=== PATIENT | female | born 1930 | race Caucasian/White ===

== ENCOUNTER 2016-04-18 15:53 | Observation (INO) | payer OTHER, MEDICARE ==
[2016-04-18 16:27] VITALS: BMI 27.1
[2016-04-18 16:48] LABS: BASOPHIL 0.8 % (0-2.0); EOSINOPHIL 6.1 % (0-4.5); MCH 28.9 pg (25.7-33.7); MCHC 32.5 g/dl (32.0-36.0); MEAN PLT VOLUME 8.3 fl (7.5-11.1); PLATELET COUNT 191 K/MM3 (134-434); RDW 14.9 % (11.6-15.6); WHITE BLOOD COUNT 5.1 K/mm3 (4.0-10.0)
[2016-04-18 17:00] LABS: INR 1.12 (0.82-1.09); PROTHROMBIN TIME (PATIENT) 12.4 SEC (9.98-11.88)
[2016-04-18 17:14] LABS: ALBUMIN 3.3 g/dl (3.4-5.0); ANION GAP 7 (8-16); BILIRUBIN,TOTAL 0.6 mg/dL (0.2-1.0); CO2 29 mmol/L (21-32); GLUCOSE,RANDOM 105 mg/dL (74-106); SGOT/AST 18 U/L (15-37); SGPT/ALT 29 U/L (12-78); TOT PROT 5.6 g/dl (6.4-8.2)
[2016-04-18 17:16] LABS: ALK PHOS 46 U/L (45-117); TROPONIN I < 0.02 ng/ml (0.00-0.05)
--- NOTE | 2016-04-18 18:21 | PDOC ---
History of Present Illness - General History Source: Patient, Family Exam Limitations: No Limitations <Francheska Bhakta - Last Filed: 04/18/16 20:33> <Vivian Hutson - Last Filed: 04/19/16 01:40> - General Chief Complaint: Syncope/Near Syncope Stated Complaint: SYNCOPE Time Seen by Provider: 04/18/16 16:24 - History of Present Illness Initial Comments: 04/18/16 18:47 The patient is an 85 year old female, with a significant past medical history of hypotension, hyperlipidemia, breast CA (1969, 1998) and dementia, who presents to the emergency department via EMS s/p two syncopal episodes just prior to presentation while the patient was at [facility] with her family. Her family is with her in the ED. They state that the patient was conversational up until she syncopized. They state that the patient was sitting for both syncopal episodes so she did not fall, they deny any head trauma. Family states that each syncopal episode lasted approximately 20-30 seconds in length. The patient does report that she was experiencing muscle cramping in her legs all day up until she syncopized. The patient denies fever, chills, headache, SOB, chest pain, nausea or vomiting. Allergies: None reported. Past Surgical History: Bilateral Mastectomy (1998), Right Hip Social History: Non smoker. Denies alcohol or drug use. PCP: In [place], [place] (Francheska Bhakta) Past History <Francheska Bhakta - Last Filed: 04/18/16 20:33> - Past Medical History Cancer: Yes (BREAST: 1969, 1998) Dementia: Yes Hypercholesterolemia: Yes Other medical history: HYPOTENSION. - Psycho/Social/Smoking Cessation Hx Anxiety: No Suicidal Ideation: No Smoking History: Never smoked Hx Alcohol Use: No Drug/Substance Use Hx: No Substance Use Type: None <Vivian Hutson - Last Filed: 04/19/16 01:40> - Past Medical History Allergies/Adverse Reactions: Allergies Allergy/AdvReac Type Severity Reaction Status Date / Time No Known Allergies Allergy Verified 04/18/16 16:24 Home Medications: Ambulatory Orders Cyclosporine [Restasis] 04/18/16 Donepezil HCl [Aricept] 10 mg PO DAILY 01/08/17 Fluoxetine HCl 10 mg 04/18/16 Raloxifene HCl [Evista (Nf) -] 60 mg PO DAILY 04/18/16 Simvastatin 20 mg PO DAILY 04/18/16 Review of Systems - Review of Systems Able to Perform ROS?: Yes <Francheska Bhakta - Last Filed: 04/18/16 20:33> <Vivian Hutson - Last Filed: 04/19/16 01:40> - Review of Systems Comments:: 04/18/16 18:47 CONSTITUTIONAL: Absent: fever, no chills, no fatigue EYES: Absent: visual changes ENT: Absent: ear pain, no sore throat CARDIOVASCULAR: Present: +Syncope Absent: chest pain, no palpitations RESPIRATORY: Absent: cough, no SOB GI: Absent: abdominal pain, no nausea, no vomiting, no constipation, no diarrhea GENITOURINARY: Absent: dysuria, no frequency, no hematuria MUSCULOSKELETAL: Present: +Muscle cramping (legs) Absent: back pain, no arthralgia SKIN: Absent: rash NEURO: Absent: headache (Francheska Bhakta) *Physical Exam <Francheska Bhakta - Last Filed: 04/18/16 20:33> <Vivian Hutson - Last Filed: 04/19/16 01:40> - Vital Signs Last Vital Signs Temp Pulse Resp BP Pulse Ox 98.3 F 64 16 125/65 98 04/18/16 22:00 04/18/16 22:00 04/18/16 22:00 04/18/16 22:00 04/18/16 22:00 - Physical Exam Comments: 04/18/16 18:48 GENERAL: Well-appearing, well-nourished. No apparent distress. HEENT: Normocephalic, atraumatic. PERRL, EOM intact. CARDIOVASCULAR: Regular rate and rhythm. Normal S1, S2. PULMONARY: Lungs clear to auscultation bilaterally. No wheezing, rales or rhonchi. ABDOMEN: Soft, non-distended, non-tender. No guarding, no rebound. EXTREMITIES: Normal ROM in all four extremities. No gross deformities. No pitting edema. SKIN: Warm, dry. No rash. NEUROLOGICAL: No focal neurological deficits. Moving all extremities purposefully. (Francheska Bhakta) Heart Score/ECG Review #1 ECG reviewed & interpreted by me at: 16:31 (Vent. Rate: 65 bpm. Normal sinus rhythm. Possible left atrial enlargement. Nonspecific T wave abnormality.) <Francheska Bhakta - Last Filed: 04/18/16 20:33> - History History: Slightly suspicious - Electrocardiogram EKG: Non specific repolarization disturbance - Age Age: >/= 65 - Risk Factors Risk Factors Heart Score: Yes Hx Hypercholesterolemia Based on the list above the patient has:: 1-2 risk factors - Troponin Troponin: </= normal limit - Score Heart Score - Total: 4 #1 General ECG Interpretation: Sinus Rhythm - ECG Intrepretation Rhythm: Regular Rhythm - [place]: Normal - P and [place] Atrial Enlargement: Left Delta Wave(s) Present: No WPW: No - QRS Poor R Wave Progression: No - ST and T Early Repolarization: No Non Specific ST-T Wave changes: Yes Prolonged Q-T Interval: No - ECG Impressions Non-specific ST Elevation: No Ischemic Changes: No Bradycardia: No Torsades valeriano Pointes: No WPW: No <Vivian Hutson - Last Filed: 04/19/16 01:40> ED Treatment Course - LABORATORY CBC & Chemistry Diagram: 04/18/16 16:40 04/18/16 16:40 <Francheska Bhakta - Last Filed: 04/18/16 20:33> - LABORATORY CBC & Chemistry Diagram: 04/18/16 16:40 04/18/16 16:40 <Vivian Hutson - Last Filed: 04/19/16 01:40> - ADDITIONAL ORDERS Additional order review: Laboratory Results 04/18/16 04/18/16 16:40 16:40 INR 1.12 Sodium 144 Potassium 4.0 Chloride 108 H Carbon Dioxide 29 Anion Gap 7 L BUN 18 Creatinine 1.0 Creat Clearance w eGFR 52.57 Random Glucose 105 Calcium 8.0 L Total Bilirubin 0.6 AST 18 ALT 29 Alkaline Phosphatase 46 Creatine Kinase 141 Troponin I < 0.02 Total Protein 5.6 L Albumin 3.3 L 04/18/16 16:40 RBC 4.14 MCV 89.0 MCHC 32.5 RDW 14.9 MPV 8.3 Neutrophils % 70.0 Lymphocytes % 14.5 Monocytes % 8.6 Eosinophils % 6.1 H Basophils % 0.8 - RADIOLOGY Radiology Studies Ordered: Category Date Time Status HEAD CT WITHOUT CONTRAST [CT] Stat CT Scan 04/18/16 17:23 Taken CHEST X-RAY PORTABLE* [RAD] Stat Radiology 04/18/16 16:25 Taken Medical Decision Making <Francheska Bhakta - Last Filed: 04/18/16 20:33> <Vivian Hutson - Last Filed: 04/19/16 01:40> - Medical Decision Making 04/18/16 18:54 EXAM: CHEST X-RAY PORTABLE Reviewed By: Dr. Arley Cardoza IMPRESSION: Mild left lung base atelectasis suggested. No other acute cardiopulmonary disease demonstrated. EXAM: HEAD CT WITHOUT CONTRAST Reviewed By: Dr. Arley Cardoza IMPRESSION: No evidence of acute intracranial abnormality demonstrated. Mild age appropriate cerebral volume loss. There is no CT evidence of acute cortical territorial infarction, bleed, mass lesion, mass effect, hydrocephalus or abnormal extra axial collection. No acute sinusitis or mastoiditis is identified. No acute skull fracture or calvarial lesion is noted. Called Dr. Pathak of Cardiology at at 20:07. Referred to answering service. Dr. Pathak returned call at 20:32. Case discussed. (Francheska Bhakta) 04/19/16 01:33 85-year-old female brought in by ambulance from a restaurant where she had a witnessed syncopal episode -On arrival, she was alert and oriented. She did not have any complaints. She had no prodromal symptoms before fainting. She did not have chest pain or shortness of breath or nausea feel flushed. -No focal neural deficits upon arrival EKG did not show any signs of ischemia CAT scan of the head was negative for any acute intracranial pathology First set of cardiac enzymes were negative. The patient lives in [place] and was visiting the area Social history she is a , does not use tobacco Discussed with the hospitalist, Dr. Headley and the patient was admitted to telemetry. I also spoke to Dr. Cabrera. The lump maker, and he will consult on this patient. He agreed with cardiac telemetry admission (Vivian Hutson) *DC/Admit/Observation/Transfer <Francheska Bhakta - Last Filed: 04/18/16 20:33> - Discharge Dispostion Admit: Yes <Vivian Hutson - Last Filed: 04/19/16 01:40> Diagnosis at time of Disposition: Syncope Qualifiers: Syncope type: unspecified Qualified Code(s): R55 - Syncope and collapse - Discharge Dispostion Decision to Admit order Date/Time: Decision to Admit Order Category Date Time Status Decision to Admit to Hospital Routine Phy Order 04/18/16 18:21 Ordered - Referrals - Attestations Scribe Attestion: 04/18/16 18:37 Documentation prepared by Francheska Bhakta, acting as medical administrative specialist for Vivian Hutson MD. (Francheska Bhakta)
--- NOTE | 2016-04-18 19:11 | HP ---
CHIEF COMPLAINT: Lightheadedness, Syncope PCP: Not on Staff HISTORY OF PRESENT ILLNESS: This is a 85 year old woman with a past medical history of Hypotension, Hyperlipidemia, Dementia, Breast Ca (1969,1998). Who presents to the emergency department with lightheadedness and syncope x this afternoon. Per patient's son , patient was eating lunch then became pale, and unresponsive for approx 30 secs , with lip cyanosis. Patient has no memory of the event. Patient denies headache , dizziness, blurred vision. Patient denies fever, chills, SOB, CP, palpitations , AP, N/V/D, constipation, dysuria. Patient denies recent travel or sick contacts. ER course was notable for: (1) CT- No evidence of acute intracranial abnormality demonstrated. Mild age appropriate cerebral volume loss. There is no CT evidence of acute cortical territorial infarction, bleed, mass lesion, mass effect, hydrocephalus or abnormal extra axial collection. No acute sinusitis or mastoiditis is identified. No acute skull fracture or calvarial lesion is noted. (2) EKG- Normal sinus rhythm. Possible left atrial enlargement. Nonspecific T wave abnormality (3) Recent Travel: None PAST MEDICAL HISTORY: See HPI PAST SURGICAL HISTORY: Bilateral Mastectomy Right Hip Replacement Social History: Smoking: None Alcohol: None Drugs: None Lives alone, family support, her son. Retired- Educator Family History: Non-contributory Allergies No Known Allergies Allergy (Verified 04/18/16 16:24) HOME MEDICATIONS: Medication Instructions Recorded Donepezil HCl [Aricept] 10 mg PO DAILY 04/18/16 Simvastatin 20 mg PO Daily 04/18/16 Restasis 0.05% 1 gtt both eyes BID 04/18/16 Vitamin D 800 IU PO DAILY 04/18/16 Evista 60 mg PO DAILY 04/18/16 REVIEW OF SYSTEMS CONSTITUTIONAL: Absent: fever, chills, diaphoresis, generalized weakness, malaise, loss of appetite, weight change HEENT: Absent: rhinorrhea, nasal congestion, throat pain, throat swelling, difficulty swallowing, mouth swelling, ear pain, eye pain, visual changes CARDIOVASCULAR: syncope, lightheadedness Absent: chest pain, palpitations, irregular heart rate, peripheral edema RESPIRATORY: Absent: cough, shortness of breath, dyspnea with exertion, orthopnea, wheezing, stridor, hemoptysis GASTROINTESTINAL: Absent: abdominal pain, abdominal distension, nausea, vomiting, diarrhea, constipation, melena, hematochezia GENITOURINARY: Absent: dysuria, frequency, urgency, hesitancy, hematuria, flank pain, genital pain MUSCULOSKELETAL: Absent: myalgia, arthralgia, joint swelling, back pain, neck pain SKIN: Absent: rash, itching, pallor HEMATOLOGIC/IMMUNOLOGIC: Absent: easy bleeding, easy bruising, lymphadenopathy, frequent infections ENDOCRINE: Absent: unexplained weight gain, unexplained weight loss, heat intolerance, cold intolerance NEUROLOGIC: Absent: headache, focal weakness or paresthesias, dizziness, unsteady gait, seizure, mental status changes, bladder or bowel incontinence PSYCHIATRIC: Absent: anxiety, depression, suicidal or homicidal ideation, hallucinations. PHYSICAL EXAMINATION GENERAL: Awake, alert, and oriented x2, in no acute distress. HEAD: Normal with no signs of trauma. EYES: Pupils equal, round and reactive to light, extraocular movements intact, sclera anicteric, conjunctiva clear. No lid lag. EARS, NOSE, THROAT: Ears normal, nares patent, oropharynx clear without exudates. Moist mucous membranes. NECK: Normal range of motion, supple without lymphadenopathy, JVD, or masses. LUNGS: Breath sounds equal, clear to auscultation bilaterally. No wheezes, and no crackles. No accessory muscle use. HEART: Regular rate and rhythm, normal S1 and S2 without murmur, rub or gallop. ABDOMEN: Soft, nontender, not distended, normoactive bowel sounds, no guarding, no rebound, no masses. No hepatomegaly or splenomegaly. MUSCULOSKELETAL: Normal range of motion at all joints. No bony deformities or tenderness. No CVA tenderness. UPPER EXTREMITIES: 2+ pulses, warm, well-perfused. No cyanosis. No clubbing. Cap refill <2 seconds. No peripheral edema. LOWER EXTREMITIES: 2+ pulses, warm, well-perfused. No calf tenderness. No peripheral edema. NEUROLOGICAL: Cranial nerves II-XII intact. Normal speech. Gait not observed. PSYCHIATRIC: Cooperative. Good eye contact. Appropriate mood and affect. SKIN: Warm, dry, normal turgor, no rashes or lesions noted. Laboratory Tests 04/18/16 04/18/16 04/18/16 16:40 16:40 16:40 WBC 5.1 RBC 4.14 Hgb 12.0 Hct 36.8 MCV 89.0 MCHC 32.5 RDW 14.9 Plt Count 191 MPV 8.3 Neutrophils % 70.0 Lymphocytes % 14.5 Monocytes % 8.6 Eosinophils % 6.1 H Basophils % 0.8 INR 1.12 Sodium 144 Potassium 4.0 Chloride 108 H Carbon Dioxide 29 Anion Gap 7 L BUN 18 Creatinine 1.0 Creat Clearance w eGFR 52.57 Random Glucose 105 Calcium 8.0 L Total Bilirubin 0.6 AST 18 ALT 29 Alkaline Phosphatase 46 Creatine Kinase 141 Troponin I < 0.02 Total Protein 5.6 L Albumin 3.3 L Diagnostics: EXAM: CHEST X-RAY PORTABLE Reviewed By: Dr. Arley Cardoza IMPRESSION: Mild left lung base atelectasis suggested. No other acute cardiopulmonary disease demonstrated. EXAM: HEAD CT WITHOUT CONTRAST Reviewed By: Dr. Arley Cardoza IMPRESSION: No evidence of acute intracranial abnormality demonstrated. Mild age appropriate cerebral volume loss. There is no CT evidence of acute cortical territorial infarction, bleed, mass lesion, mass effect, hydrocephalus or abnormal extra axial collection. No acute sinusitis or mastoiditis is identified. No acute skull fracture or calvarial lesion is noted. ASSESSMENT/PLAN: This is a 85 year old woman with a PMHx of: Hypotension, HLD, Dementia, Breast Ca. Who present to the ED with lightheadedness and syncope x this afternoon. Placed in observation for Syncope for further evaluation for their emergent condition. Plan: 1. Card: Syncope/Hypotension/HLD - Likely secondary to Hypotension vs Arrhythmia - Tele monitoring - HEART Score 4 - Appreciate Cardiology consult- call placed by ED - Orthostatics - Fall Precautions - CE neg x1 - Trend CE x2 - Echo in am check wall motion, valvular dz - Carotid Doppler in am r/o stenosis - CT Brain- mild age appropriate cerebral volume loss - Monitor vitals - Monitor CBC, BMP in am - Lipid Panel, HgbA1C in am - Patient's home med Simvastatin 20mg not on formulary will substitute Lipitor 10mg 2. Dementia - Continue Aricept - Fall Precautions 3. Breast Ca - hx Salas mastectomy 4. F/E/N - PO Fluids - Replete lytes prn - Low Chol, Low Fat Diet 5. DVT/PPI Prophylaxis - OOB - SCDs - Consider AC if LOS > 48 hrs - PPI 6. Code Status: Patient is a Full Code Problem List - Problem (1) Syncope Code(s): R55 - SYNCOPE AND COLLAPSE Qualifiers: Syncope type: unspecified Qualified Code(s): R55 - Syncope and collapse (2) Hypotension, chronic Code(s): I95.89 - OTHER HYPOTENSION (3) HLD (hyperlipidemia) Code(s): E78.5 - HYPERLIPIDEMIA, UNSPECIFIED (4) Breast CA Code(s): C50.919 - MALIGNANT NEOPLASM OF UNSP SITE OF UNSPECIFIED FEMALE BREAST (5) Dementia Code(s): F03.90 - UNSPECIFIED DEMENTIA WITHOUT BEHAVIORAL DISTURBANCE (6) DVT prophylaxis Code(s): DXS9723 - Visit type - Emergency Visit Emergency Visit: Yes ED Registration Date: 04/18/16 Care time: The patient presented to the Emergency Department on the above date and was hospitalized for further evaluation of their emergent condition. - New Patient This patient is new to me today: Yes Date on this admission: 04/18/16 - Critical Care Critical Care patient: No
[2016-04-18] MEDS ORDERED: DONEPEZIL HCL 5 MG TABLET (FP) ONE (22:34)
[2016-04-18 23:09] LABS: TROPONIN I < 0.02 ng/ml (0.00-0.05)
[2016-04-19] MEDS ORDERED: ACETAMINOPHEN 325 MG TABLET (FP) PO PRN (00:17)
[2016-04-19 06:47] LABS: URINE APPEARANCE SLCLOUDY; URINE BILIRUBIN NEGATIVE (NEGATIVE); URINE BLOOD NEGATIVE (NEGATIVE); URINE COLOR YELLOW; URINE GLUCOSE (UA) NEGATIVE (NEGATIVE); URINE KETONE TRACE (NEGATIVE); URINE LEUK ESTERASE NEGATIVE (NEGATIVE); URINE NITRITE NEGATIVE (NEGATIVE); URINE PROTEIN NEGATIVE (NEGATIVE); URINE UROBILINOGEN NEGATIVE E.U./dl (0.2-1.0)
[2016-04-19 07:34] LABS: BASOPHIL 0.6 % (0-2.0); EOSINOPHIL 6.7 % (0-4.5); MCH 29.7 pg (25.7-33.7); MCHC 33.2 g/dl (32.0-36.0); MEAN CELL VOLUME 89.4 fl (80-96); MEAN PLT VOLUME 8.5 fl (7.5-11.1); NEUTROPHILS 58.4 % (42.8-82.8); PLATELET COUNT 160 K/MM3 (134-434); RDW 14.9 % (11.6-15.6); WHITE BLOOD COUNT 5.8 K/mm3 (4.0-10.0)
[2016-04-19 07:53] LABS: CALCIUM 7.8 mg/dL (8.5-10.1); CREATININE 0.9 mg/dL (0.55-1.02); MAGNESIUM 2.2 mg/dL (1.8-2.4); PHOSPHOROUS 3.3 mg/dL (2.5-4.9)
[2016-04-19 08:02] LABS: TROPONIN I < 0.02 ng/ml (0.00-0.05)
[2016-04-19] MEDS ORDERED: CHOLECALCIFEROL (VITAMIN D3) 400 UNIT TABLET (FP) PO SCH (10:00)
[2016-04-19 12:29] VITALS: TEMP 97.8
--- NOTE | 2016-04-19 13:42 | CONSULT ---
Cardiology Consult (text) - Consultation Consultation Note: Cardiology 85 year old female with no significant PMH, denies any significant past medical history, admitted for syncope, while at lunch, few secs to mts; denies any cardiac symtoms. social NA allergy NA FH NA; CVA Surgery mastectomy PMH NA PE: vitals stable normal cardio-pulmonary exam abdomen soft no leg edema Impression: syncope needs to be further evaluated family wants to leave AMA, and does not want further cardiac evaluation. US carotids unremarkable No evidence of PA, CHF or arrythmias EKG NSR subtle ST depression inferior, T changes V 1-3, subtle ST depression V 5 Rec: Follow-up with PCP and director of customer acquisition.
--- NOTE | 2016-04-19 13:47 | DS ---
Physical Exam: SUBJECTIVE: Patient seen and examined. She was laying in the Ed stretcher in no acute distress. States she did not sleep last night and wants to leave for an appointment she has today. Encouraged her to stay and wait for the crystal grower who is on his way to see her. She agreed to wait but after crystal grower evaluated, she wants to leave AMA. OBJECTIVE: Vital Signs Period Temp Pulse Resp BP Sys/Medina Pulse Ox Last 24 Hr 97.8 F-98.3 F 56-72 16-20 124-170/64-98 98-99 PHYSICAL EXAM GENERAL: The patient is awake, alert, and fully oriented, in no acute distress. HEAD: Normal with no signs of trauma. EYES: , sclera anicteric, conjunctiva clear. ENT: Ears normal, nares patent, oropharynx clear without exudates, moist mucous membranes. NECK: Trachea midline, full range of motion, supple. LUNGS: Bilateral lung selby with clear lung sounds HEART: Regular rate and rhythm ABDOMEN: Soft, nontender, nondistended, normoactive bowel sounds, no guarding EXTREMITIES: 2+ pulses, warm, well-perfused, no edema. NEUROLOGICAL: Normal speech, gait not observed. PSYCH: Normal mood, normal affect. SKIN: Warm, dry, normal turgor, no rashes or lesions noted. LABS Laboratory Results - last 24 hr 04/18/16 04/19/16 04/19/16 22:35 06:25 06:25 WBC 5.8 RBC 3.74 Hgb 11.1 Hct 33.5 MCV 89.4 MCHC 33.2 RDW 14.9 Plt Count 160 MPV 8.5 Neutrophils % 58.4 Lymphocytes % 24.0 D Monocytes % 10.3 H Eosinophils % 6.7 H Basophils % 0.6 Sodium 141 Potassium 4.2 Chloride 110 H Carbon Dioxide 25 Anion Gap 6 L BUN 24 H D Creatinine 0.9 Random Glucose 94 Calcium 7.8 L Phosphorus 3.3 Magnesium 2.2 Creatine Kinase 113 Troponin I < 0.02 Urine Color Urine Appearance Urine pH Ur Specific Rex Urine Protein Urine Glucose (UA) Urine Ketones Urine Blood Urine Nitrite Urine Bilirubin Urine Urobilinogen Ur Leukocyte Esterase 04/19/16 04/19/16 06:25 06:37 WBC RBC Hgb Hct MCV MCHC RDW Plt Count MPV Neutrophils % Lymphocytes % Monocytes % Eosinophils % Basophils % Sodium Potassium Chloride Carbon Dioxide Anion Gap BUN Creatinine Random Glucose Calcium Phosphorus Magnesium Creatine Kinase 129 Troponin I < 0.02 Urine Color Yellow Urine Appearance Slcloudy Urine pH 6.0 Ur Specific Rex 1.028 Urine Protein Negative Urine Glucose (UA) Negative Urine Ketones Trace H Urine Blood Negative Urine Nitrite Negative Urine Bilirubin Negative Urine Urobilinogen Negative Ur Leukocyte Esterase Negative HOSPITAL COURSE: Date of Admission:04/18/16 Date of Discharge: 04/19/16 Patient is an 85 year old female with a significant past medical history of hypotension, hyperlipidemia, breast cancer. She presented to the ER on 2015 after a syncopal episode that occurred when she was having lunch. The syncopal episodes lasted a few seconds. Patient does not recall the events that led up the the syncope but does remember waking up in the hospital. She denies any chest pain, dizziness, shortness of breath. Called by the ED that pt wants to leave AMA after seeing the crystal grower. Cardiology: Syncope - acute Assessment/Plan: Vitals stable, troponins negative x 3, lungs clear. She is alert and oriented x 3, in no acute distress. She lives in [facility], does not have a crystal grower but is agreeing to follow up with her PCP. She wants to leave AMA and is refusing further cardiac workup. EKG shows normal sinus rhythm with ST depresion, T changes. Carotid doppler 04/19/2016 negative Neurology: Syncope - acute Assessment/Plan: Event may have been a seizure episode. Patient refusing further workup. Recommend that she follow up with Dr. Justice in [place], [place] for further workup. Pt refusing further workup. Syncopal episode may have been either a TIA, seizure or have been cardiac related. I spoke to patient earlier today and encouraged her to stay and have a full evaluation regarding cause of her syncopal episode. Despite this, she has requested to sign out against medical advice. She displays the capacity to make her own decisions. Discussed with the patient that the plan is to have the Manager Banking assess her, monitor her on a radiographer cardiac catheterization, review her chart and make recommendations. The risk regarding leaving the hospital with an undiagnosed cause of the syncopal episode have been discussed. All questions were answered fully. The patient understands the risks and wants to sign out AMA. She has a PCP in [place] that she states she will follow up with. Disposition. AMA, Full code. Minutes to complete discharge: 35 Discharge Summary Reason For Visit: SYNCOPE Current Active Problems Breast CA (Acute) DVT prophylaxis (Acute) Dementia (Acute) HLD (hyperlipidemia) (Acute) Hypotension, chronic (Acute) Syncope (Acute) - Instructions Referrals: STAFF,NOT ON [Primary Care Provider] - Disposition: AGAINST MEDICAL ADVICE - Home Medications Comprehensive Discharge Medication List: Ambulatory Orders Cyclosporine [Restasis] 04/18/16 Donepezil HCl [Aricept] 10 mg PO DAILY 04/18/16 Fluoxetine HCl 10 mg 04/18/16 Raloxifene HCl [Evista (Nf) -] 60 mg PO DAILY 04/18/16 Simvastatin 20 mg PO DAILY 04/18/16 This patient is new to me today: Yes Date on this admission: 04/19/16 Emergency Visit: Yes ED Registration Date: 04/18/16 Care time: The patient presented to the Emergency Department on the above date and was hospitalized for further evaluation of their emergent condition. Critical Care patient: No - Discharge Referral Referred to [facility] Med P.C.: No
[2016-04-19 14:44] VITALS: BP 144/76; PULSE 61
--- NOTE | 2016-04-19 17:12 | EKG ---
Test Reason : Blood Pressure : / mmHG Vent. Rate : 065 BPM Atrial Rate : 065 BPM P-R Int : 168 ms QRS Dur : 080 ms QT Int : 434 ms P-R-T Axes : 049 050 073 degrees QTc Int : 451 ms NORMAL SINUS RHYTHM POSSIBLE LEFT ATRIAL ENLARGEMENT NONSPECIFIC T WAVE ABNORMALITY ABNORMAL ECG NO PREVIOUS ECGS AVAILABLE Confirmed by MARY YOUNGBLOOD, JOHN ([id number]) on 04/19/2016 5:11:31 PM Referred By: Confirmed By:JOHN HERNANDEZ MD
[2016-04-19] MEDS ORDERED: DONEPEZIL HCL 10 MG TABLET (FP) PO SCH (22:00)
[2016-04-19] MEDS ORDERED: ATORVASTATIN CA 10 MG TABLET (FP) PO SCH (22:00)
== END 2016-04-19 13:50 | disposition left against medical advice (07) ==
LOC: JER 15:53 → JERBED 18:39 → UNDOADMOB 18:39 → JERBED 19:11
PROVIDERS: ADMIT Internal Medicine; ATTEND Nurse Practitioner Family
DX: R55 Syncope and collapse (principal); F03.90 Unspecified dementia, unspecified severity, without behavioral disturbance, psychotic disturbance, mood disturbance, and anxiety; E78.5 Hyperlipidemia, unspecified; Z85.3 Personal history of malignant neoplasm of breast; I95.89 Other hypotension
CPT/HCPCS: 36415; 70450-TC; 71010-TC; 80048; 80053; 81003; 82550; 83735; 84100; 84484; 85025; 85610; 93005; 93010; 93306-TC; 93880-TC; 99285-25; G0378

== ENCOUNTER 2016-07-29 14:19 | Emergency (ER) | payer OTHER, MEDICARE ==
--- NOTE | 2016-07-29 14:30 | PDOC ---
History of Present Illness <Vincent Ragsdale - Last Filed: 07/29/16 18:00> - History of Present Illness Initial Comments: 07/29/16 14:46 The patient is an 85 year old female with a past medical hx of hypotension, hyperlipidemia, breast CA (1969, 1998) and dementia who presents to the ED via EMS for evaluation of a syncopal episode this afternoon. The patient reports she has been feeling lightheaded for the past two months. The patient was at a museum this afternoon. She reports today she felt severely lightheaded prior to her syncopal episode. The patient's family report they were informed of the incident by the people the patient was with. They not she blacked out and fell to the ground. They state she became very flush prior to this episode. The patient denies any chest pain, SOB, diaphoresis The patient denies any fever, chills, nausea, vomiting Allergies: Penicillin Past Surgical History: Bilateral Mastectomy (1998), Right Hip Social History: Non smoker. Denies alcohol or drug use <Crystal Lino - Last Filed: 07/29/16 18:22> - General Chief Complaint: Syncope/Near Syncope Stated Complaint: SYNCOPE Time Seen by Provider: 07/29/16 14:29 Past History - Past Medical History Cancer: Yes (BREAST: 1969, 1998) Dementia: Yes Hypercholesterolemia: Yes - Psycho/Social/Smoking Cessation Hx Anxiety: No Suicidal Ideation: No Smoking History: Never smoked Hx Alcohol Use: No Drug/Substance Use Hx: No Substance Use Type: None <Vincent Ragsdale - Last Filed: 07/29/16 18:00> <Crystal Lino - Last Filed: 07/29/16 18:22> - Past Medical History Allergies/Adverse Reactions: Allergies Allergy/AdvReac Type Severity Reaction Status Date / Time Penicillins Allergy Verified 07/29/16 14:44 Home Medications: Ambulatory Orders Cyclosporine [Restasis] 04/18/16 Donepezil HCl [Aricept] 10 mg PO DAILY 04/18/16 Fluoxetine HCl 10 mg 04/18/16 Raloxifene HCl [Evista (Nf) -] 60 mg PO DAILY 04/18/16 Simvastatin 20 mg PO DAILY 04/18/16 Review of Systems - Review of Systems Able to Perform ROS?: Yes Comments:: 07/29/16 14:46 GENERAL/CONSTITUTIONAL: No fever or chills. No weakness. HEAD, EYES, EARS, NOSE AND THROAT: No change in vision. No ear pain or discharge. No sore throat. CARDIOVASCULAR: +Syncope. No chest pain or shortness of breath. RESPIRATORY: No cough, wheezing, or hemoptysis. GASTROINTESTINAL: No nausea, vomiting, diarrhea or constipation. GENITOURINARY: No dysuria, frequency, or change in urination. MUSCULOSKELETAL: No joint or muscle swelling or pain. No neck or back pain. SKIN: No rash NEUROLOGIC: No headache, vertigo, or change in strength/sensation. ENDOCRINE: No increased thirst. No abnormal weight change. HEMATOLOGIC/LYMPHATIC: No anemia, easy bleeding, or history of blood clots. ALLERGIC/IMMUNOLOGIC: No hives or skin allergy. <Crystal Lino - Last Filed: 07/29/16 18:22> *Physical Exam - Vital Signs Last Vital Signs Temp Pulse Resp BP Pulse Ox 97.5 F L 52 L 18 112/58 98 07/29/16 14:38 07/29/16 14:38 07/29/16 14:38 07/29/16 14:38 07/29/16 14:38 - Physical Exam Comments: 07/29/16 14:47 GENERAL: Awake, alert, and fully oriented, in no acute distress HEAD: No signs of trauma EYES: PERRLA, EOMI, sclera anicteric, conjunctiva clear ENT: Auricles normal inspection, hearing grossly normal, nares patent, oropharynx clear without exudates. Moist mucosa NECK: Normal ROM, supple, no lymphadenopathy, JVD, or masses LUNGS: Breath sounds equal, clear to auscultation bilaterally. No wheezes, and no crackles HEART: Bradycardia. Regular rhythm, normal S1 and S2, no murmurs, rubs or gallops ABDOMEN: Soft, nontender, normoactive bowel sounds. No guarding, no rebound. No masses EXTREMITIES: Normal range of motion, no edema. No clubbing or cyanosis. No cords, erythema, or tenderness NEUROLOGICAL: Cranial nerves II through XII grossly intact. Normal speech, normal gait SKIN: Warm, Dry, normal turgor, no rashes or lesions noted. <Crystal Lino - Last Filed: 07/29/16 18:22> Heart Score/ECG Review - ECG Impressions Comment:: 07/29/16 14:[address] Ragsdale Impression: Sinus bradycardia at a rate of 52 bpm Otherwise normal EKG <Crystal Lino - Last Filed: 07/29/16 18:22> ED Treatment Course - LABORATORY CBC & Chemistry Diagram: 07/29/16 15:30 07/29/16 15:30 <Vincent Ragsdale - Last Filed: 07/29/16 18:00> - LABORATORY CBC & Chemistry Diagram: 07/29/16 15:30 07/29/16 15:30 - RADIOLOGY Radiograph Interpretation: 07/29/16 16:32 RAD/CHEST X-RAY PORTABLE* Clinical history: Syncope. COMPARISON: April 18, 2016. A portable chest film is supplied and compared to prior study. In the interval since prior study a right-sided dual electrode pacemaker has been inserted with the electrode tips overlying the right atrium and ventricle. The heart is of normal size and there is mild unfolding of the aorta. There is osteopenia and possible right breast prosthesis. There is no evidence of heart failure, acute infiltrate or pleural effusion. IMPRESSION: Interval insertion of dual electrode right-sided pacemaker. No acute intrathoracic abnormality seen. Reported By: Chapo Dolan MD 07/29/16 1532 07/29/16 17:20 CT/HEAD CT WITHOUT CONTRAST Syncope. CT scan of the brain. A noncontrast CT scan of the brain was performed. Compared to prior CT scan of the brain dated 04/18/2016. There is moderate volume loss and ventricular dilatation. Mild chronic microvascular ischemic changes are present. No gross mass lesion, focal infarct or intracranial hemorrhage is seen. Visualized paranasal sinuses and mastoid air cells are well aerated. Calcification of the cavernous carotid arteries are noted. The calvarium is intact . Impression: Moderate atrophy. No gross evidence of a focal intracranial lesion or hemorrhage is seen. Reported By: Noemi Cook MD 07/29/16 1717 <Crystal Lino - Last Filed: 07/29/16 18:22> Medical Decision Making - Medical Decision Making 07/29/16 15:19 The patient is an 85 year old female with a past medical hx of hypotension, hyperlipidemia, breast CA (1969, 1998) and dementia who presents to the ED via EMS for evaluation of a syncopal episode this afternoon. The patient denies hitting her head. She reports she felt severely lightheaded prior to her syncopal episode. The plan is to order head CT, labs, EKG, CXR 07/29/16 18:08 Discussed the patients case with Dr. Justice at 17:59 who is willing to admit the patient at a Hospital in [place], [place]. He recommended to call Dr. Caceres and inform him of this plan. Paged Dr. Caceres via answering service at 1803, awaiting call back Dr. Caceres called back at 1807, the patients case was discussed The family understand and agrees to the plan for discharge. All questions answered. <Crystal Lino - Last Filed: 07/29/16 18:22> *DC/Admit/Observation/Transfer - Discharge Dispostion Admit: No - Attestations Physician Attestion: 07/29/16 14:30 I, Dr. Vincent Ragsdale, attest that this document has been prepared under my direction and personally reviewed by me in its entirety. I further attest, that it accurately reflects all work, treatment, procedures and medical decision -making performed by me. <Vincent Ragsdale - Last Filed: 07/29/16 18:00> - Attestations Scribe Attestion: 07/29/16 14:46 Documentation prepared by Crystal Lino, acting as medical science liaison for Vincent Ragsdale MD/DO. <Crystal Lino - Last Filed: 07/29/16 18:22> Diagnosis at time of Disposition: Syncope and collapse - Discharge Dispostion Disposition: HOME Condition at time of disposition: Good - Patient Instructions Printed Discharge Instructions: DI for Syncope in Adults (Fainting) Additional Instructions: I spoke with Dr. Justice and Dr. Caceres- Take her directly to the ER in [facility] for observation/cardiac monitoring. Best- Dr. Vincent Ragsdale
[2016-07-29 14:44] VITALS: BMI 27.1
[2016-07-29] MEDS ORDERED: SODIUM CHLORIDE 1,000 ML IV STA (14:44)
[2016-07-29 15:45] LABS: BASOPHIL 0.8 % (0-2.0); EOSINOPHIL 3.8 % (0-4.5); MCH 29.1 pg (25.7-33.7); MCHC 33.1 g/dl (32.0-36.0); MEAN PLT VOLUME 8.2 fl (7.5-11.1); NEUTROPHILS 66.7 % (42.8-82.8); PLATELET COUNT 195 K/MM3 (134-434); RDW 15.5 % (11.6-15.6)
[2016-07-29 15:58] LABS: INR 1.11 (0.82-1.09); PROTHROMBIN TIME (PATIENT) 12.2 SEC (9.98-11.88)
[2016-07-29 16:28] LABS: MAGNESIUM 2.4 mg/dL (1.8-2.4); PHOSPHOROUS 3.9 mg/dL (2.5-4.9)
[2016-07-29 16:29] LABS: ALBUMIN 3.1 g/dl (3.4-5.0); BILIRUBIN,TOTAL 0.4 mg/dL (0.2-1.0); CALCIUM 8.6 mg/dL (8.5-10.1); COCKROFT - GAULT 37.8505; CREATININE 1.1 mg/dL (0.55-1.02); TOT PROT 5.7 g/dl (6.4-8.2)
[2016-07-29 16:30] LABS: TROPONIN I < 0.02 ng/ml (0.00-0.05)
[2016-07-29 18:20] VITALS: BP 121/61; PULSE 61; TEMP 98.6
--- NOTE | 2016-07-30 10:04 | EKG ---
Test Reason : Blood Pressure : / mmHG Vent. Rate : 052 BPM Atrial Rate : 052 BPM P-R Int : 160 ms QRS Dur : 082 ms QT Int : 456 ms P-R-T Axes : 039 049 062 degrees QTc Int : 424 ms SINUS BRADYCARDIA demand atrial pacing Confirmed by LUISA LIU MD ([id number]) on 07/30/2016 10:03:35 AM Referred By: Confirmed By:LUISA LIU MD
== END 2016-07-29 18:28 | disposition home or self-care (01) ==
LOC: JER 14:19
PROC: 3E0337Z Introduction of Electrolytic and Water Balance Substance into Peripheral Vein, Percutaneous Approach (ICD-10-PCS; principal; 2016-07-29)
DX: R55 Syncope and collapse (principal); G30.8 Other Alzheimer's disease; F02.80 Dementia in other diseases classified elsewhere, unspecified severity, without behavioral disturbance, psychotic disturbance, mood disturbance, and anxiety; I95.89 Other hypotension; E78.5 Hyperlipidemia, unspecified; Z85.3 Personal history of malignant neoplasm of breast
CPT/HCPCS: 36415; 70450-TC; 71010-TC; 80053; 82550; 82553; 83605; 83690; 83735; 84100; 84484; 85025; 85610; 86850; 86900; 86901; 93005; 93010; 99283-25